=== PATIENT | female | born 1950 | race Caucasian/White ===

== ENCOUNTER 2022-07-26 13:57 | Emergency (ER) | payer MEDICARE, SELFPAY ==
[2022-07-26 14:23] VITALS: BP 80/46; PULSE 90; RESP 16; TEMP 36.5; O2SAT 99; BMI 23.7
--- NOTE | 2022-07-26 14:24 | EXP.UTC ---
Discharge Plan Disposition Patient Disposition: Home, Self-Care Condition: Good Prescriptions Prescriptions: New benzonatate [benzonatate] 100 mg capsule 100 mg PO TIDP PRN (Reason: Cough) Qty: 30 0RF oseltamivir [Tamiflu] 75 mg capsule 75 mg PO BID Qty: 10 0RF ondansetron 4 mg Tablet,Disintegrating 4 mg PO Q8H PRN (Reason: Nausea) Qty: 20 0RF Referrals Follow up/Referrals: Dmitri Mckinney [Primary Care Provider] - See instructions Activity Restrictions/Add. Instructions Additional Instructions/Restrictions: Drink plenty of fluids. Take tylenol or ibuprofen for pain or fever. Take the medications as directed. Follow up with your regular doctor. GO TO THE ER FOR ANY WORSENING SYMPTOMS Clinical Impressions Clinical Impression: Acute viral syndrome Instructions Patient Instructions: DI for Influenza -- Adult Discharge ED Provider: Aric Ibanez [facility] HPI General Stated complaint: body aches Time Seen by Provider: 07/26/22 14:24 History of Present Illness Provider Complaint: She states that for the past 1 day she has had body aches, chills, fever, dry cough, and malaise. She denies any known sick contacts. Related Data Previous Rx's Medication Instructions Recorded benzonatate 100 mg capsule 100 mg PO TIDP PRN Cough #30 caps 07/26/22 ondansetron 4 mg disintegrating 4 mg PO Q8H PRN Nausea #20 tabs 07/26/22 tablet oseltamivir 75 mg capsule (Tamiflu) 75 mg PO BID #10 caps 07/26/22 Allergies Allergy/AdvReac Type Severity Reaction Status Date / Time Sulfa (Sulfonamide Allergy Verified 07/26/22 14:26 Antibiotics) [facility] Disclaimer: The information contained in this section may have been updated after the patient was seen, as this information can be updated by other users. Social History Smoking Status: Former smoker alcohol intake: never current occupational status: employed Travel in the last 8 weeks: None ROS Obtained: Yes All systems reviewed & no additional complaints except as documented Constitutional Constitutional: Reports chills and Reports fever(s) Eyes Eyes: Denies eye discharge ENT Ears, Nose, Mouth, and Throat: Reports as per HPI Cardiovascular Cardiovascular: Denies chest pain Respiratory Respiratory: Denies chest congestion and Reports cough Gastrointestinal Gastrointestingal: Reports nausea; Denies abdominal pain, constipation, cramping, diarrhea or vomiting Musculoskeletal Musculoskeletal: Denies arthralgias Integumentary/Breasts Skin/Breast: Denies rash Neurologic Neurologic: Denies paresthesias Physical Exam General General appearance: alert and in no apparent distress Head Head exam: atraumatic, normocephalic and normal inspection Eye Eye exam: Present normal appearance, PERRL and EOMI ENT ENT exam: Present normal exam, normal oropharynx, mucous membranes moist, TM's normal bilaterally and normal external ear exam Neck Neck exam: Present normal inspection, full ROM and trachea midline; Absent meningismus or lymphadenopathy Chest Chest inspection: Present normal inspection and symmetric chest wall rise; Absent tenderness Respiratory Respiratory exam: Present normal lung sounds bilaterally; Absent respiratory distress Cardiovascular Cardiovascular exam: Present regular rate and normal rhythm; Absent JVD Abdominal Exam Abdominal exam: Present soft and normal bowel sounds; Absent distention, tenderness or guarding Extremities Exam Extremities exam: Present normal inspection, full ROM and normal capillary refill; Absent calf tenderness Back Exam Back exam: Present normal inspection; Absent tenderness Neurological Exam Neurological exam: Present alert and oriented X3 Psychiatric Psychiatric exam: Present normal affect and normal mood Skin Skin exam: Present warm, dry, intact and normal color Lymphatic Lymphatic Findings: no adenopathy Medical Decision Making Med
[2022-07-26 14:32] LABS: UTC Influenza A Antigen Negative (Negative); UTC Influenza B Antigen Negative (Negative)
[2022-07-26 15:33] VITALS: BP 100/62
[2022-07-26 15:41] VITALS: BP 100/62; PULSE 90; RESP 16; TEMP 36.5
[2022-07-26 15:42] LABS: Adenovirus,PCR Not Detected (NotDetected); Bordetella Pertussis Not Detected (NotDetected); Chlamydophila Pneumoniae, PCR Not Detected (NotDetected); Coronavirus 19, PCR Not Detected (NotDetected); Coronavirus 229E Not Detected (NotDetected); Coronavirus NL63 Not Detected (NotDetected); Coronavirus OC43 Not Detected (NotDetected); Coronovirus HKU1,PCR Not Detected (NotDetected); Human Metapneumovirus Not Detected (NotDetected); Influenza A, PCR Not Detected (NotDetected); Influenza AH1, 2009 Not Detected (NotDetected); Influenza AH1, PCR Not Detected (NotDetected); Influenza AH3,PCR Not Detected (NotDetected); Influenza B, PCR Not Detected (NotDetected); Mycoplasma Pneumoniae, PCR Not Detected (NotDetected); Parainfluenza 1, PCR Not Detected (NotDetected); Parainfluenza 2, PCR Not Detected (NotDetected); Parainfluenza 3, PCR Not Detected (NotDetected); Parainfluenza 4, PCR Not Detected (NotDetected); Respiratory Syncytial Virus Not Detected (NotDetected); Rhinovirus/Enterovirus Not Detected (NotDetected)
== END 2022-07-26 15:42 | disposition home or self-care (01) ==
PROVIDERS: Emergency Provider Nurse Practitioner Family; PCP Internal Medicine
DX: B34.9 Viral infection, unspecified (principal)
CPT/HCPCS: 87581; 87632; 87798; 87804; C9803; U0003; U0005

== ENCOUNTER 2022-07-27 22:05 | Inpatient (IN) | payer MEDICARE, SELFPAY ==
--- NOTE | 2022-07-27 22:02 | ECG_ITS ---
APPROVED REPORT Exam: Resting ECG HR:135 bpm ECG Measurements Heart Rate 135 AXES LA 151 P 72 QRSd 81 QRS 49 QT 283 T 49 QTc 362 Conclusion SINUS TACHYCARDIA MINIMAL ST DEPRESSION [0.025+ mV ST DEPRESSION] ABNORMAL RHYTHM ECG UNCONFIRMED REPORT Electronically signed by : Osbaldo Mccormick MD 07/28/2022 12:10:52
[2022-07-27 22:05] VITALS: BP 135/59; PULSE 136; RESP 26; TEMP 38.3; O2SAT 95; BMI 23.7
[2022-07-27 22:10] VITALS: BMI 23.7
--- NOTE | 2022-07-27 22:11 | XR_ITS ---
PROCEDURE INFORMATION: Exam: XR Chest Exam date and time: 07/27/2022 10:13 PM Age: 72 years old Clinical indication: Fever TECHNIQUE: Imaging protocol: Radiologic exam of the chest. Views: 2 views. COMPARISON: No relevant prior studies available. FINDINGS: Lungs: Irregular perihilar airspace opacity within the mid left lung. Pleural spaces: No pneumothorax. Heart/Mediastinum: No cardiomegaly. Bones/joints: No acute fracture. IMPRESSION: Irregular perihilar airspace opacity within the mid left lung which is nonspecific but potentially secondary to pneumonia. Follow-up to radiographic clearance is recommended to rule out underlying mass.
[2022-07-27 22:23] LABS: Coronavirus 19, PCR Not Detected (NotDetected); Influenza A, PCR Not Detected (NotDetected); Influenza B, PCR Not Detected (NotDetected)
[2022-07-27 22:27] LABS: Microscopic, Urine URINE MICROSCOPIC (MICROSCOPIC)
[2022-07-27 22:28] LABS: Basophils # 0.1 K/mm3 (0-0.2); Basophils % 0.4 % (0.1-2.0); Eosinophils % 0.2 % (0.1-12.0); Hematocrit 39.5 % (37.0-47.0); Hemoglobin 12.8 g/dL (12.2-16.2); Lymphocytes # 0.7 K/mm3 (0.7-4.5); Lymphocytes % 5.4 % (10-50); Mean Corpuscular HGB Conc 32.4 g/dL (31.8-35.4); Mean Corpuscular Hemoglobin 30.9 pg (27.0-31.2); Mean Corpuscular Volume 95.2 fl (81-99); Mean Platelet Volume 10.7 fl (7.4-10.4); Monocytes # 0.3 K/mm3 (0.1-1.0); Monocytes % 2.3 % (1.7-9.3); Neutrophils # 12.2 K/mm3 (1.8-7.8); Neutrophils % 91.7 % (37.0-80.0); Platelet Count 219 K/mm3 (142-424); Red Blood Count 4.15 M/mm3 (4.20-5.40); Red Cell Distribution Width 13.1 % (11.5-17.5); White Blood Count 13.3 K/mm3 (4.8-10.8)
[2022-07-27 22:30] VITALS: BP 109/49; PULSE 131; RESP 21; O2SAT 95
[2022-07-27 22:32] LABS: Alanine Aminotransferase 24 U/L (12-78); Albumin Level 4.2 g/dl (3.5-5.0); Albumin/Globulin Ratio 1.2 (1.1-1.8); Alkaline Phosphatase 164 U/L (38-126); Anion Gap 16.9 mEq/L (5-15); Aspartate Amino Transferase 29 U/L (14-36); Bilirubin,Total 0.6 mg/dl (0.2-1.3); Blood Urea Nitrogen 71 mg/dl (7-17); Calcium 9.3 mg/dl (8.4-10.2); Carbon Dioxide 23 mmol/L (22.0-30.0); Chloride 100 mmol/L (98-107); Creatinine Clearance Estimated 15 mL/min (50-200); Estimated Glomerular Filt Rate 13 ml/min (>60); GFR (African American) 16 ML/MIN (>60); Globulin 3.4 g/dL (1.3-3.2); Glucose 121 mg/dl (74-100); Potassium 3.9 mmoL/L (3.5-5.1); Sodium 136 mmol/L (136-145); Total Protein,Serum 7.6 g/dl (6.3-8.2)
[2022-07-27 22:35] LABS: MANUAL DIFFERENTIAL MANUAL DIFFERENTIAL (MANUAL DIFF)
[2022-07-27 22:36] VITALS: PULSE 35
--- NOTE | 2022-07-27 22:39 | HMH.EDCP ---
Discharge Plan Disposition Patient Disposition: Admitted As Inpatient Chief Complaint: Chest Pain Clinical Impressions Clinical Impression: CAP (community acquired pneumonia), Severe sepsis with acute organ dysfunction, Elevated troponin Discharge ED Provider: Nathan Craig Chest Pain HPI General Chief Complaint: Chest Pain Stated Complaint: chest pain Time Seen by Provider: 07/27/22 22:39 Mode of Arrival: Family Vehicle Source of Information: Patient, Relative and Medical Record Limitations: No Limitations Description of Symptoms (Recalled from ER Triage Doc. by RN): Pt c/o posterior neck pain tht radiates to L shoulder and down left chest. Her family is also c/o pt has acted dizzy and confused at times . Pt has had fever and chills, currently 101. She has not had a ny tylenol since 10am, denies any motrin use. Pt states the pain worsens when she lays on her side. Family also state pt is on a new muscle relaxer and caused her BP to drop to 80's/40's. History of Present Illness HPI narrative: lt sided chest pain witrh dizzyness and fever /chills over the last few days MD complaint: chest pain Onset (ago): day(s) Duration: intermittent Pain location: left chest Severity: moderate Risk Factors for CAD: Hypertension and Family Hx of CAD Treatments prior to or on arrival for Cardiac Chest Pain: none CECY Score for Non-Stemi Age of Patient: 70-79 years old Heart Rate: 110-149 bpm Systolic Blood Pressure: 80-99 mmHg Serum Creatinine: 2.00-3.99 mg/dl CHF [place] Class: I-No CHF Other Risk Factors: Elevated Cardiac Enzymes or Biomarkers Non-Stemi Risk Score: 187 Related Data On Oral Contraceptives: No Home Medications Medication Instructions Recorded Confirmed albuterol sulfate 90 mcg/actuation 2 inh inhalation Q4-6H PRN 07/27/22 07/27/22 aerosol inhaler shortness of air budesonide-formoterol HFA 80 2 inh inhalation BID COPD 07/27/22 07/27/22 mcg-4.5 mcg/actuation aerosol inhaler (Symbicort) cyclobenzaprine 5 mg tablet 5 mg PO DAILY muscle relaxer 07/27/22 07/27/22 estradiol 0.5 mg tablet 1 mg PO DAILY hormone 07/27/22 07/27/22 fluticasone fur. 100 mcg-umeclid 1 inh inhalation DAILY COPD 07/27/22 07/27/22 62.5 mcg-vilant 25 mcg inhalat.powder (Trelegy Ellipta) levocetirizine 5 mg tablet 5 mg PO DAILY Allergy symptoms 07/27/22 07/27/22 lisinopril 10 mg tablet 10 mg PO DAILY High blood pressure 07/27/22 07/27/22 meloxicam 15 mg tablet 15 mg PO DAILY Arthritis 07/27/22 07/27/22 montelukast 10 mg tablet 10 mg PO DAILY Allergy symptoms 07/27/22 07/27/22 oseltamivir 75 mg capsule (Tamiflu) 75 mg PO BID suspected flu 07/27/22 07/27/22 oxybutynin chloride 10 mg 10 mg PO DAILY bladder 07/27/22 07/27/22 tablet,extended release 24 hr pravastatin 40 mg tablet 40 mg PO DAILY High cholesterol 07/27/22 07/27/22 triamterene 75 0.5 tab PO DAILY High blood 07/27/22 07/27/22 mg-hydrochlorothiazide 50 mg tablet pressure Allergies Allergy/AdvReac Type Severity Reaction Status Date / Time Sulfa (Sulfonamide Allergy Verified 07/26/22 14:26 Antibiotics) [facility] Disclaimer: The information contained in this section may have been updated after the patient was seen, as this information can be updated by other users. Social History (Updated 07/26/22 @ 21:20 by Aric Ibanez APRN) Smoking Status: Former smoker alcohol intake: never current occupational status: employed Travel in the last 8 weeks: None ROS Obtained: Yes All systems reviewed & no additional complaints except as documented Physical Exam General General appearance: alert Head Head exam: normocephalic Eye Eye exam: Present PERRL and EOMI ENT ENT exam: Present mucous membranes moist Neck Neck exam: Present trachea midline Respiratory Respiratory exam: Present other (lt sided rhonchi ); Absent respiratory distress Cardiovascular Cardiovascular exam: Present regular rate, systolic murmur and +S4 Abdominal Exam Abdominal exam: Presen
[2022-07-27 22:47] LABS: Troponin I 0.11 ng/ml (0.00-0.034)
[2022-07-27 22:47] LABS: Appearance,Urine CLEAR (Clear); Blood, Urine TRACE-I (Negative); Color,Urine YELLOW (Yellow); Glucose,Urine (UA) Negative (Negative); Ketones,Urine Negative (Negative); Leukocyte Esterase,Urine 1+ (Negative); Nitrate,Urine Negative (Negative); PH,Urine 5.5 (5.0-8.5); Protein,Urine 2+ (Negative); Urobilinogen,Urine 0.2 EU/dl (0.2)
[2022-07-27 22:51] LABS: Procalcitonin 13.6 ng/mL (0.0-2.0)
[2022-07-27 22:52] LABS: C-Reactive Protein 631.1 mg/L (0-4)
[2022-07-27 22:52] LABS: Bilirubin,Urine 1+ (Negative)
[2022-07-27 22:57] LABS: Bacteria,Urine 1+ /lpf
--- NOTE | 2022-07-27 22:57 | CT_ITS ---
PROCEDURE INFORMATION: Exam: CT Thoracic Spine Without Contrast Exam date and time: 07/27/2022 11:11 PM Age: 72 years old Clinical indication: Pain in thoracic spine; With radiculopathy; Bilateral TECHNIQUE: Imaging protocol: Computed tomography of the thoracic spine without contrast. Radiation optimization: All CT scans at this facility use at least one of these dose optimization techniques: automated exposure control; mA and/or kV adjustment per patient size (includes targeted exams where dose is matched to clinical indication); or iterative reconstruction. COMPARISON: CT CERVICAL SPINE WO CON 07/27/2022 11:09 PM FINDINGS: Bones/joints: No acute fracture. Normal alignment. No significant disc protrusion. No severe spinal canal stenosis. Soft tissues: Unremarkable. Other findings: Please see separate report for CT chest. IMPRESSION: No acute fracture or malalignment of the thoracic spine.
--- NOTE | 2022-07-27 22:57 | CT_ITS ---
PROCEDURE INFORMATION: Exam: CT Cervical Spine Without Contrast Exam date and time: 07/27/2022 11:09 PM Age: 72 years old Clinical indication: Neck pain TECHNIQUE: Imaging protocol: Computed tomography of the cervical spine without contrast. Radiation optimization: All CT scans at this facility use at least one of these dose optimization techniques: automated exposure control; mA and/or kV adjustment per patient size (includes targeted exams where dose is matched to clinical indication); or iterative reconstruction. COMPARISON: CR XR CHEST 2V 07/27/2022 10:13 PM FINDINGS: Bones/joints: No acute fracture. Normal alignment. No significant disc protrusion. No severe spinal canal stenosis. Lungs: Bilateral apical scarring. Soft tissues: Unremarkable. IMPRESSION: No acute fracture or malalignment of the cervical spine.
--- NOTE | 2022-07-27 22:57 | CT_ITS ---
PROCEDURE INFORMATION: Exam: CT Chest Without Contrast; Diagnostic Exam date and time: 07/27/2022 11:13 PM Age: 72 years old Clinical indication: Pain; Chest pressure TECHNIQUE: Imaging protocol: Diagnostic computed tomography of the chest without contrast. Radiation optimization: All CT scans at this facility use at least one of these dose optimization techniques: automated exposure control; mA and/or kV adjustment per patient size (includes targeted exams where dose is matched to clinical indication); or iterative reconstruction. COMPARISON: CR XR CHEST 2V 07/27/2022 10:13 PM FINDINGS: Lungs: Scattered left lung consolidations most likely represent pneumonia. [id number] centrilobular and paraseptal emphysema. Bilateral apical scarring. Pleural spaces: Unremarkable. No pneumothorax. No pleural effusion. Heart: Unremarkable. No cardiomegaly. No pericardial effusion. Coronary arteries: Severe coronary arterial calcification, indicating the presence of coronary artery disease. Lymph nodes: Unremarkable. No enlarged lymph nodes. Vasculature: The aorta demonstrates moderate atherosclerotic disease. Liver: Hepatic steatosis. Bones/joints: Unremarkable. No acute fracture. Soft tissues: Unremarkable. Other findings: Stigmata of old granulomatous disease. IMPRESSION: 1. Scattered left lung consolidations most likely represent pneumonia. The bacterial pneumonia is favored. 2. Hepatic steatosis. 3. Severe coronary arterial calcification, indicating the presence of coronary artery disease. If the patient has associated symptoms, recommend management as per chest pain guidelines. If the patient is asymptomatic, consider reviewing modifiable cardiovascular risk factors and managing as per guidelines for primary prevention.
[2022-07-27 23:00] VITALS: BP 98/42; PULSE 125; RESP 23; O2SAT 94
[2022-07-27 23:12] LABS: Erythrocyte Sedimentation Rate 95 mm/hr (0-30)
--- NOTE | 2022-07-27 23:16 | PC.NURSE ---
Pt gone to RAD for CT
--- NOTE | 2022-07-27 23:18 | PC.NURSE ---
Pt back from RAD
[2022-07-27 23:23] LABS: Lymphocytes % 7 % (10-50); Monocytes % 3 % (2-9); Neutrophils % 90 % (42-76); Total Cells Counted 100
[2022-07-27 23:24] LABS: Platelet Estimate Normal; RBC Morphology Normal
[2022-07-28] VITALS (16 sets, daily range): BP systolic 77–126; BP diastolic 40–66; PULSE 72–123; RESP 16–22; TEMP 36.4–37.3; O2SAT 91–99; BMI 24.3
--- NOTE | 2022-07-28 00:54 | EXP.HP ---
History of Present Illness *Admission Date: 07/28/22 *Reason for visit:: pneumonia, , cough, high heart rate. *History of present illness: was seen a few days ago, started on Tamiflu from urgent care. became worse and came to ER. [facility] Disclaimer: The information contained in this section may have been updated after the patient was seen, as this information can be updated by other users. Medical History (Updated 07/28/22 @ 13:05 by Eliel Elizondo MD) Allergies Asthma History of thyroid nodule Hyperlipidemia Hypertension Overactive bladder Pneumonia Surgical History (Updated 07/28/22 @ 02:38 by Katie Arreaga RN) History of cardiac cath History of colonoscopy History of knee replacement History of total abdominal hysterectomy Family History (Updated 07/28/22 @ 02:40 by Katie Arreaga RN) Brother History of bone cancer Family history of asthma Sister History of colon cancer Family history of asthma Social History (Updated 07/28/22 @ 02:43 by Katie Arreaga RN) Smoking Status: Former smoker years smoked: 30 smoking status stop date: 2007 alcohol intake: never current occupational status: retired Travel in the last 8 weeks: None household members: spouse housing: apartment lives independently: Yes marital status: do you feel safe at home: Yes Review of Systems Review of Systems Review of systems (narrative): when seen in Er feeling much better. after IV fluids. stated saw PCP in [place] last week before ILL and had blood work done , at that time having no issues . has had covid vaccine, has been out shopping, does not know of any one that has been ill close to her in last week Constitutional Constitutional: Reports as per HPI, Reports body ache(s) (neck pain left into shoulder ), Reports chills, Reports difficulty sleeping, Reports fatigue, Reports fever(s), Reports headache(s) and Reports lethargy Eyes Eyes: Reports system reviewed and no additional complaints, except as documented ENT Ears, Nose, Mouth, and Throat: Reports system reviewed and no additional complaints, except as documented, Reports headache(s) and Reports neck pain *Cardiovascular Cardiovascular: Reports dyspnea, Reports dyspnea on exertion, Reports lightheadedness and Reports palpitations *Respiratory Respiratory: Reports change in phlegm color, Reports chest congestion, Reports cough, Reports dyspnea and Reports dyspnea on exertion *Gastrointestinal Gastrointestinal: Reports system reviewed and no additional complaints, except as documented *Genitourinary Genitourinary: Reports system reviewed and no additional complaints, except as documented *Musculoskeletal Musculoskeletal: Reports arthralgias, Reports back pain, Reports myalgias, Reports neck pain and Reports tingling Integumentary/Breasts Skin/Breast: Reports system reviewed and no additional complaints, except as documented *Neurologic Neurologic: Reports headache(s) and Reports tingling Psychiatric Psychiatric: Reports system reviewed and no additional complaints, except as documented Endocrine Endocrine: Reports fatigue and Reports palpitations Hematologic/Lymphatic Hematologic/Lymphatic: Reports system reviewed and no additional complaints, except as documented Allergic/Immunologic Comments: saw hearing aid mechanic , this week before ill. Meds Home Medications and Allergies Home Medications Medication Instructions Recorded Confirmed Type albuterol sulfate 90 mcg/actuation 2 inh inhalation Q4-6H PRN 07/27/22 07/28/22 History aerosol inhaler shortness of air cyclobenzaprine 5 mg tablet 5 mg PO BIDP PRN Muscle spasms 07/27/22 07/28/22 History estradiol 0.5 mg tablet 0.5 mg PO DAILY hormone replacement 07/27/22 07/28/22 History fluticasone fur. 100 mcg-umeclid 1 inh inhalation DAILY COPD 07/27/22 07/28/22 History 62.5 mcg-vilant 25 mcg inhalat.powder (Trelegy Ellipta) levocetirizine 5 mg tablet 5 m
--- NOTE | 2022-07-28 01:15 | PC.NURSE ---
Received report from Ascencion Dunn RN at this time.
--- NOTE | 2022-07-28 01:26 | PC.NURSE ---
Notified ED of issues with the bed in the room and the need to obtain a new bed from ICU. Would be down shortly to obtain patient for transfer to the floor.
[2022-07-28 01:33] LABS: Troponin I 0.08 ng/ml (0.00-0.034)
--- NOTE | 2022-07-28 04:23 | EXP.PN ---
Subjective *Date: 07/28/22 *Time: 07:30 Interval history: bp sys less than 90 , patient is stable no distress Exam Data for Last 24 hours Vital signs and Labs for Last 24 Hours: Temp Pulse Resp BP Pulse Ox 97.9 F 84 21 90/52 L 98 07/28/22 02:00 07/28/22 02:00 07/28/22 02:20 07/28/22 02:00 07/28/22 03:00 Laboratory Results - last 24 hr 07/27/22 22:08: WBC 13.3 H, RBC 4.15 L, Hgb 12.8, Hct 39.5, MCV 95.2, MCH 30.9, MCHC 32.4, RDW 13.1, Plt Count 219, MPV 10.7 H, Neut % (Auto) 91.7 H, Lymph % (Auto) 5.4 L, [place] % (Auto) 2.3, Eos % (Auto) 0.2, Baso % (Auto) 0.4, Neut # (Auto) 12.2 H, Lymph # (Auto) 0.7, [place] # (Auto) 0.3, Eos # (Auto) 0.0, Baso # (Auto) 0.1, Total Counted 100, Neutrophils % (Manual) 90 H, Lymphocytes % (Manual) 7 L, Monocytes % (Manual) 3, Platelet Estimate Normal, RBC Morphology Normal, ESR 95 H 07/27/22 22:08: Troponin I 0.11 H, C-Reactive Protein 631.1 H, Procalcitonin 13.6 H 07/27/22 22:08: SARS-CoV-2 (PCR) Not detected, Influenza A Untype (PCR) Not detected, Influenza Type B (PCR) Not detected 07/27/22 22:08: Sodium 136, Potassium 3.9, Chloride 100, Carbon Dioxide 23, Anion Gap 16.9 H, BUN 71 H, Creatinine 3.40 H, Estimated Creat Clear 15, Estimated GFR 13 L*, Est GFR ( Amer) 16 L*, Glucose 121 H, Calcium 9.3, Total Bilirubin 0.6, AST 29, ALT 24, Alkaline Phosphatase 164 H, Total Protein 7.6, Albumin 4.2, Globulin 3.4 H, Albumin/Globulin Ratio 1.2 07/27/22 22:21: Urine Color Yellow, Urine Appearance Clear, Urine pH 5.5, Ur Specific [place] 1.020, Urine Protein 2+, Urine Glucose (UA) Negative, Urine Ketones Negative, Urine Blood Trace-i, Urine Nitrate Negative, Urine Bilirubin 1+ A, Urine Urobilinogen 0.2, Ur Leukocyte Esterase 1+ A, Urine RBC 3-5, Urine WBC 5-10, Ur Squamous Epith Cells 5-10, Urine Bacteria 1+ 07/27/22 22:45: Lactate 1.0 07/28/22 01:04: Troponin I 0.08 H I & O for Last 24 hours: Intake & Output 07/25/22 07/26/22 07/27/22 07/28/22 23:59 23:59 23:59 23:59 Intake Total 2049 Output Total 0 / 0 Balance 2049 Weight 60.781 kg 63.14 kg Constitutional Constitutional: no acute distress Comments: awake alert denies pain or difficulty breathing *Routine Respiratory Exam Comments: no signs od resp distress, , Assessment and Plan *Assessment and plan (1) Severe sepsis with acute organ dysfunction: Status: Acute Category: Medical Code(s): A41.9 - Sepsis, unspecified organism; R65.20 - Severe sepsis without septic shock (2) Elevated troponin: Status: Acute Category: Medical Code(s): R77.8 - Other specified abnormalities of plasma proteins Plan will give extra 500 cc bolus, tropin trending down, patient is stable do not want to start pressures at this time .
--- NOTE | 2022-07-28 04:49 | PC.NURSE ---
Hospitalist Kaleb Henao APRN notified at this time of completion of 500 ml bolus. Patient's BP remains 80/50. Patient remains asymptomatic from hypotension. Patient is alert and oriented x4. All other vital signs are WNL. Patient remains afebrile, heart rate 80-100, respirations 17-19. Patient has no complaints voiced to this RN.
[2022-07-28 07:17] LABS: Chloride 111 mmol/L (98-107); Sodium 139 mmol/L (136-145)
[2022-07-28 07:18] LABS: Potassium 3.5 mmoL/L (3.5-5.1)
[2022-07-28 07:20] LABS: Alanine Aminotransferase 16 U/L (12-78); Albumin Level 2.7 g/dl (3.5-5.0); Alkaline Phosphatase 119 U/L (38-126); Anion Gap 9.5 mEq/L (5-15); Aspartate Amino Transferase 21 U/L (14-36); Bilirubin,Total 0.3 mg/dl (0.2-1.3); Blood Urea Nitrogen 54 mg/dl (7-17); Carbon Dioxide 22 mmol/L (22.0-30.0); Creatinine Clearance Estimated 21 mL/min (50-200); Estimated Glomerular Filt Rate 19 ml/min (>60); GFR (African American) 23 ML/MIN (>60); Globulin 2.6 g/dL (1.3-3.2); Total Protein,Serum 5.3 g/dl (6.3-8.2)
[2022-07-28 07:21] LABS: Calcium 7.4 mg/dl (8.4-10.2); Glucose 91 mg/dl (74-100)
[2022-07-28 07:32] LABS: Troponin I 0.06 ng/ml (0.00-0.034)
[2022-07-28 08:02] LABS: Basophils % 0.2 % (0.1-2.0); Eosinophils % 0.5 % (0.1-12.0); Lymphocytes # 0.7 K/mm3 (0.7-4.5); Monocytes # 0.3 K/mm3 (0.1-1.0); Monocytes % 3.5 % (1.7-9.3); Neutrophils % 87.7 % (37.0-80.0)
[2022-07-28 08:24] LABS: Hematocrit 28.7 % (37.0-47.0); Mean Corpuscular HGB Conc 33.1 g/dL (31.8-35.4); Mean Corpuscular Hemoglobin 31.1 pg (27.0-31.2); Mean Corpuscular Volume 93.9 fl (81-99); Mean Platelet Volume 10.4 fl (7.4-10.4); Neutrophils # 7.4 K/mm3 (1.8-7.8); Platelet Count 132 K/mm3 (142-424); Red Blood Count 3.05 M/mm3 (4.20-5.40); Red Cell Distribution Width 13.1 % (11.5-17.5); White Blood Count 8.5 K/mm3 (4.8-10.8)
[2022-07-28 08:29] LABS: Hemoglobin 9.5 g/dL (12.2-16.2)
[2022-07-28 08:30] LABS: MANUAL DIFFERENTIAL MANUAL DIFFERENTIAL (MANUAL DIFF)
[2022-07-28 09:04] LABS: Troponin I 0.06 ng/ml (0.00-0.034)
[2022-07-28 10:45] LABS: Lymphocytes % 7 % (10-50); Monocytes % 2 % (2-9); Neutrophils % 90 % (42-76); Platelet Estimate Slight Decrease; RBC Morphology Normal; Total Cells Counted 100
[2022-07-28 12:53] LABS: Troponin I 0.05 ng/ml (0.00-0.034)
--- NOTE | 2022-07-28 18:09 | PC.NURSE ---
pt has has 5 unmeasured voids this shift
[2022-07-29] VITALS (11 sets, daily range): BP systolic 107–146; BP diastolic 55–75; PULSE 90–111; RESP 16–18; TEMP 36.7–37.9; O2SAT 93–98; BMI 24.3
--- NOTE | 2022-07-29 05:44 | PC.NURSE ---
pt is A&OX4. no c/o pain this shift. pt stated that she had been coughing up some blood on the previous shift. pt was given a specimen cup for a sputum, pt has been unable to cough anything up this shift. call light is in reach.
[2022-07-29 08:09] LABS: Basophils % 0.4 % (0.1-2.0); Eosinophils # 0.2 K/mm3 (0.0-0.4); Eosinophils % 1.9 % (0.1-12.0); Hematocrit 32.5 % (37.0-47.0); Hemoglobin 10.4 g/dL (12.2-16.2); Lymphocytes # 0.8 K/mm3 (0.7-4.5); Lymphocytes % 10.8 % (10-50); Mean Corpuscular HGB Conc 32.1 g/dL (31.8-35.4); Mean Corpuscular Hemoglobin 29.6 pg (27.0-31.2); Mean Corpuscular Volume 92.5 fl (81-99); Mean Platelet Volume 9.7 fl (7.4-10.4); Monocytes # 0.3 K/mm3 (0.1-1.0); Monocytes % 4.3 % (1.7-9.3); Neutrophils # 6.3 K/mm3 (1.8-7.8); Neutrophils % 82.6 % (37.0-80.0); Platelet Count 217 K/mm3 (142-424); Red Blood Count 3.52 M/mm3 (4.20-5.40); Red Cell Distribution Width 13.3 % (11.5-17.5); White Blood Count 7.7 K/mm3 (4.8-10.8)
[2022-07-29 08:15] LABS: Chloride 112 mmol/L (98-107); Potassium 3.5 mmoL/L (3.5-5.1); Sodium 143 mmol/L (136-145)
[2022-07-29 08:18] LABS: Alanine Aminotransferase 17 U/L (12-78); Albumin Level 3.2 g/dl (3.5-5.0); Albumin/Globulin Ratio 1.1 (1.1-1.8); Alkaline Phosphatase 199 U/L (38-126); Anion Gap 10.5 mEq/L (5-15); Aspartate Amino Transferase 25 U/L (14-36); Bilirubin,Total 0.3 mg/dl (0.2-1.3); Blood Urea Nitrogen 33 mg/dl (7-17); Carbon Dioxide 24 mmol/L (22.0-30.0); Creatinine Clearance Estimated 33 mL/min (50-200); Estimated Glomerular Filt Rate 32 ml/min (>60); GFR (African American) 39 ML/MIN (>60); Total Protein,Serum 6.2 g/dl (6.3-8.2)
[2022-07-29 08:19] LABS: Calcium 8.6 mg/dl (8.4-10.2); Glucose 81 mg/dl (74-100)
--- NOTE | 2022-07-29 09:28 | XR_ITS ---
PROCEDURE INFORMATION: Exam: XR Chest Exam date and time: 07/29/2022 9:36 AM Age: 72 years old Clinical indication: Dyspnea TECHNIQUE: Imaging protocol: Radiologic exam of the chest. Views: 2 views. COMPARISON: CT CHEST WO CON 07/27/2022 11:13 PM and x-ray 07/27/2022. FINDINGS: Lungs: There has been interval increase in left lung consolidation since the prior x-ray. Pleural spaces: There may be a trace left pleural effusion. Heart/Mediastinum: No cardiomegaly. Bones/joints: Unchanged. IMPRESSION: Interval progression of left pneumonia.
[2022-07-29 09:51] LABS: NT Pro Brain Natriuretic Pep. 5290 pg/mL (0-125)
[2022-07-29 09:54] LABS: Troponin I 0.06 ng/ml (0.00-0.034)
--- NOTE | 2022-07-29 11:20 | ECG_ITS ---
APPROVED REPORT Exam: Resting ECG HR:112 bpm ECG Measurements Heart Rate 112 AXES NV 144 P 60 QRSd 81 QRS 19 QT 323 T 34 QTc 389 Conclusion SINUS TACHYCARDIA ABNORMAL RHYTHM ECG UNCONFIRMED REPORT Electronically signed by : Osbaldo Mccormick MD 07/30/2022 11:12:43
--- NOTE | 2022-07-29 12:13 | EXP.PN ---
Subjective *Date: 07/29/22 *Time: 12:13 Interval history: No acute events overnight. Patient reports productive cough with some blood tinges overnight. She feels like she is smothering and is short of breath. She also has burning in her mouth that is somewhat alleviated by eating ice chips. Exam Data for Last 24 hours Vital signs and Labs for Last 24 Hours: Temp Pulse Resp BP Pulse Ox 98.0 F 102 H 16 146/75 H 97 07/29/22 11:26 07/29/22 11:26 07/29/22 11:07/29/22 11:07/29/22 11:26 Laboratory Results - last 24 hr 07/28/22 12:23: Troponin I 0.05 H 07/29/22 06:44: Sodium 143, Potassium 3.5, Chloride 112 H, Carbon Dioxide 24, Anion Gap 10.5, BUN 33 H D, Creatinine 1.60 H D, Estimated Creat Clear 33, Estimated GFR 32 L, Est GFR ( Amer) 39 L D, Glucose 81, Calcium 8.6, Total Bilirubin 0.3, AST 25, ALT 17, Alkaline Phosphatase 199 H, Total Protein 6.2 L, Albumin 3.2 L D, Globulin 3.0, Albumin/Globulin Ratio 1.1 07/29/22 06:44: WBC 7.7, RBC 3.52 L, Hgb 10.4 L, Hct 32.5 L, MCV 92.5, MCH 29.6, MCHC 32.1, RDW 13.3, Plt Count 217 D, MPV 9.7, Neut % (Auto) 82.6 H, Lymph % (Auto) 10.8, [place] % (Auto) 4.3, Eos % (Auto) 1.9, Baso % (Auto) 0.4, Neut # (Auto) 6.3, Lymph # (Auto) 0.8, [place] # (Auto) 0.3, Eos # (Auto) 0.2, Baso # (Auto) 0.0 07/29/22 06:44: Troponin I 0.06 H, NT-Pro-B Natriuret Pep 5290 H I & O for Last 24 hours: Intake & Output 07/26/22 07/27/22 07/28/22 07/29/22 23:59 23:59 23:59 23:59 Intake Total 2410 / 2410 240 / 240 Output Total 300 / 300 0 / 0 Balance 2110 / 2110 240 / 240 Weight 60.781 kg 63.14 kg 63.163 kg Microbiology Reports for the Last 24 Hours: Microbiology 07/27/22 22:21 Urine,Clean Catch Urine Culture - Preliminary Constitutional Constitutional: mild distress (Shortness of breath), chronically ill appearing and cooperative *Routine HEENT Exam Head: Present normocephalic and atraumatic Eye: Present EOMI and PERRL ENT: Present mucous membranes dry, oropharynx clear and other (Erythema down the middle of the tongue, irritated feeling per patient) *Routine Neck Exam Neck: Present supple and full ROM *Routine Respiratory Exam Respiratory: Present accessory muscle use, rhonchi (Diffusely) and normal respiratory effort (Slight tachypnea and increased work of breathing); Absent CTA bilaterally or respiratory distress *Routine Cardiovascular Exam Cardiovascular: Present RRR, Normal S1, Normal S2 and tachycardia; Absent murmur *Routine Abdominal Exam Abdominal: Present soft and normoactive bowel sounds; Absent tenderness, distended, rebound or guarding *Routine Extremities Exam Extremities: Present full ROM, pulses intact and normal capillary refill; Absent edema or tenderness *Routine Neurological Exam Neurological: Present alert, oriented X3, CN II-XII intact, moving all extremities, normal tone and normal speech; Absent sensory deficit or motor deficit Routine Psychiatric Exam Psychiatric: Present normal affect, normal thought process, cooperative, good insight and good judgment Assessment and Plan *Assessment and plan (1) Acute viral syndrome: Status: Acute Category: Medical Code(s): B34.9 - Viral infection, unspecified (2) CAP (community acquired pneumonia): Status: Acute Category: Medical Code(s): J18.9 - Pneumonia, unspecified organism (3) Severe sepsis with acute organ dysfunction: Status: Acute Category: Medical Code(s): A41.9 - Sepsis, unspecified organism; R65.20 - Severe sepsis without septic shock (4) Elevated troponin: Status: Acute Category: Medical Code(s): R77.8 - Other specified abnormalities of plasma proteins (5) Acute hypoxemic respiratory failure: Status: Acute Category: Medical Code(s): J96.01 - Acute respiratory failure with hypoxia (6) KENNY (acute kidney injury): Status: Acute Category: Medical Code(s): N17.9 - Acute kidney failur
[2022-07-30] VITALS: BP 105/49; PULSE 100; PULSE 99; RESP 17; TEMP 37.1; O2SAT 93
[2022-07-30 04:00] VITALS: BP 116/63; PULSE 110; PULSE 96; RESP 17; TEMP 36.8; O2SAT 94; BMI 24.5
[2022-07-30 05:41] VITALS: PULSE 94; PULSE 98; O2SAT 95
[2022-07-30 07:11] LABS: Basophils % 0.7 % (0.1-2.0); Eosinophils # 0.1 K/mm3 (0.0-0.4); Eosinophils % 2.3 % (0.1-12.0); Hematocrit 29.4 % (37.0-47.0); Lymphocytes # 0.8 K/mm3 (0.7-4.5); Lymphocytes % 13.8 % (10-50); Mean Corpuscular HGB Conc 33.9 g/dL (31.8-35.4); Mean Corpuscular Hemoglobin 30.9 pg (27.0-31.2); Mean Corpuscular Volume 91.3 fl (81-99); Mean Platelet Volume 9.1 fl (7.4-10.4); Monocytes # 0.4 K/mm3 (0.1-1.0); Monocytes % 6.4 % (1.7-9.3); Neutrophils # 4.4 K/mm3 (1.8-7.8); Neutrophils % 76.9 % (37.0-80.0); Platelet Count 240 K/mm3 (142-424); Red Blood Count 3.22 M/mm3 (4.20-5.40); Red Cell Distribution Width 13.3 % (11.5-17.5); White Blood Count 5.8 K/mm3 (4.8-10.8)
[2022-07-30 07:17] LABS: Chloride 109 mmol/L (98-107); Potassium 3.4 mmoL/L (3.5-5.1); Sodium 141 mmol/L (136-145)
[2022-07-30 07:20] LABS: Alanine Aminotransferase 19 U/L (12-78); Alkaline Phosphatase 201 U/L (38-126); Anion Gap 12.4 mEq/L (5-15); Aspartate Amino Transferase 33 U/L (14-36); Bilirubin,Total 0.5 mg/dl (0.2-1.3); Blood Urea Nitrogen 25 mg/dl (7-17); Carbon Dioxide 23 mmol/L (22.0-30.0); Creatinine Clearance Estimated 44 mL/min (50-200); Estimated Glomerular Filt Rate 44 ml/min (>60); GFR (African American) 54 ML/MIN (>60)
[2022-07-30 07:21] LABS: Calcium 8.3 mg/dl (8.4-10.2); Glucose 92 mg/dl (74-100)
--- NOTE | 2022-07-30 07:56 | PC.NURSE ---
Pt c/o of a PERDOMO at beginning of shift. At this time pt also had a low grade fever 100.3. Tylenol administered per OCT. Pt also c/o feeling SOA after getting up to BR this morning. PRN Duoneb administered. Pt states favorable results. Call light within reach.
[2022-07-30 08:00] VITALS: BP 135/63; PULSE 105; PULSE 97; RESP 16; TEMP 36.9; O2SAT 98
--- NOTE | 2022-07-30 09:23 | CA_ITS ---
APPROVED REPORT EXAM: Comprehensive 2D, Doppler, and color-flow Echocardiogram Sampling Expert: Rajwinder Negrete, DANIELA, RVS Ht: 5 ft 3 in Wt: 140lbs BSA: 1.66 BP: 146/75 mmHg Indications: SOA, Pneumonia, Family hx-HD, Ex-smoker Echo Enhancing Agent Comments: Pt supine throughout exam due to coughing epidodes 2D Dimensions Aortic Root 2.71 cm LA Volume 45.00 mL Left Atrium 2.74 cm LA Volume Index 26.50 mL/m2 (M/F) 16-34 LVOT 1.94 cm (M/F) 1.5-2.5 M-Mode Dimensions RVDd 2.34 cm (0.9-2.6) LA Diam 3.15 cm (1.9-4.0) LVDd 4.12 cm (3.5-5.7) Ao Diam 2.98 cm (2.0-3.7) LVDs 2.63 cm (3.5-5.7) IVSd 1.02 cm (0.6-1.1) PWd 0.85 cm (0.6-1.1) EF (Teich) 66.30% EPSs 0.38 cm FS 36.20% EDV (Teich) 75.10 mL TAPSE 1.70 (<1.7) ESV (Teich) 25.30 mL LV Diastology E Decel Time 90.00 (160-240 msec) E/A Ratio 2.96 MED E' 10.80 (< 7 cm/sec) MED A' 15.80 cm/s E'/MED E' Ratio 10.19 (>14) LAT E' 11.10 (<10 cm/sec) LAT A' 14.30 cm/s E/LAT E' Ratio 9.92 (>14) Aortic Valve LVOT Max 111.00 (70-110 cm/s) LVOT VTI 22.65 cm AoV Peak Shahid. 160.00 (50-130 cm/s) AO Peak GR. 10.30 mmHg AO Mean GR. 5.00 (<5 mmHg) AO VTI 30.71 (18-25 cm) AJAY (VTI) 2.18 (2.5-4.5 cm2) Mitral Valve MV A Velocity 37.00 (40-130 cm/s) E/A Ratio 2.96 MV Decel. Time 90.00 (160-240 ms) MV PHT 27.00 ms Pulmonary Valve PV Peak Velocity 78.00 (50-150 cm/s) Tricuspid Valve TR P. Velocity 243.00 cm/s RAP Estimate 10.00 mmHg RVSP 33.60 mmHg Left Ventricle Atrium is normal size, left ventricle is normal size, estimated ejection fraction 55% with no regional wall motion abnormality, diastolic parameters are inconclusive. Right Ventricle Right atrium and right ventricle are normal size and contractility. Aortic Valve Valve is minimally thickened and fibrosed there is no aortic stenosis or aortic insufficiency. Mitral Valve Is grossly normal, there is trace mitral regurgitation. Tricuspid Valve Tricuspid valve grossly normal, there is trace tricuspid regurgitation, calculated right ventricular systolic pressure 33 mmHg. Pulmonic Valve Pulmonic valve is poorly visualized. Great Vessels Aortic root is normal size. Inferior vena cava is normal size with normal inspiratory collapse. Pericardium No significant pericardial effusion noted. Conclusion 1. Normal left ventricular size, estimated ejection fraction 55% with no regional wall motion abnormality, diastolic parameters are inconclusive. 2. Trace mitral and tricuspid regurgitation, calculated right ventricular systolic pressure is 33 mmHg. 3. No significant pericardial effusion noted. 4. Inferior vena cava is normal size with normal inspiratory collapse. Electronically signed by : Vinny Sterling MD 07/30/2022 15:14:12
--- NOTE | 2022-07-30 11:16 | EXP.DC.SUM ---
General Admission date:: 07/28/22 Discharge date: 07/30/22 HPI HPI HPI: Patient is a 72-year-old woman with past medical history of hypertension, COPD, and recent diagnosis of the flu who came to the ER for posterior neck pain that radiated to her left shoulder. Her family is also c/o pt has acted dizzy and confused at times . Pt has had fever and chills, currently 101. She has not had any tylenol since 10am, denies any motrin use. Pt states the pain worsens when she lays on her side. Family also state pt is on a new muscle relaxer and caused her BP to drop to 80's/40's. Patient was seen a few days ago and started on Tamiflu from urgent care. became worse and came to ER. Hospital Course Hospital Course Hospital Course: Patient was admitted in the health care coordinator hours of 07/28 for left-sided community-acquired pneumonia. Patient met sepsis criteria on admission with leukocytosis of 13.3 and tachycardia. Patient additionally had a new supplemental oxygen requirement of 2 to 3 L by nasal cannula. Additionally creatinine was elevated to 3.4 and patient denied any history of previous kidney problems. She had an elevated troponin of 0.11 which trended down to 2.06. Tachycardia continued during admission and she was started on metoprolol 25 mg p.o. daily on 07/29. This was increased to 50 mg p.o. daily on day of discharge. Her white count trended down and was 5.8 on day of discharge, creatinine additionally trended down and was 1.2 on day of discharge. A repeat chest x-ray on 07/29 did show worsening of her left lung consolidation. On 07/30 patient had been on room air for greater than 24 hours. She was overall feeling better and eager to return home, having spent [place] and in the hospital. Given her improvement in lab work I think that this is reasonable. She will be discharged home on a 5-day course of Levaquin 500 mg p.o. daily patient did have an echo on day of discharge given her shortness of breath and an elevated BNP of 5290. Results are pending at time of discharge. Since troponins trended down, patient denied chest pain, and EKG was not overly concerning for acute cardiac ischemia, this seems to be a type II NSTEMI in setting of relative hypoxia, sepsis, and acute kidney injury. Lastly, patient did seem to have oral candidiasis and she was therefore started on nystatin swish and swallow. -Given low blood pressure patient's lisinopril and Flexeril are DC'd. Exam Data for Last 24 hours Vital signs and Labs for Last 24 Hours: Temp Pulse Resp BP Pulse Ox 98.4 F 97 H 16 135/63 98 07/30/22 08:00 07/30/22 08:00 07/30/22 08:00 07/30/22 08:00 07/30/22 08:00 Laboratory Results - last 24 hr 07/30/22 07:00: Sodium 141, Potassium 3.4 L, Chloride 109 H, Carbon Dioxide 23, Anion Gap 12.4, BUN 25 H, Creatinine 1.20 H D, Estimated Creat Clear 44, Estimated GFR 44 L, Est GFR ( Amer) 54 L D, Glucose 92, Calcium 8.3 L, Total Bilirubin 0.5, AST 33 D, ALT 19, Alkaline Phosphatase 201 H, Total Protein 6.0 L, Albumin 3.0 L, Globulin 3.0, Albumin/Globulin Ratio 1.0 L 07/30/22 07:00: WBC 5.8, RBC 3.22 L, Hgb 10.0 L, Hct 29.4 L, MCV 91.3, MCH 30.9, MCHC 33.9, RDW 13.3, Plt Count 240, MPV 9.1, Neut % (Auto) 76.9, Lymph % (Auto) 13.8, [place] % (Auto) 6.4, Eos % (Auto) 2.3, Baso % (Auto) 0.7, Neut # (Auto) 4.4, Lymph # (Auto) 0.8, [place] # (Auto) 0.4, Eos # (Auto) 0.1, Baso # (Auto) 0.0 I & O for Last 24 hours: Intake & Output 07/27/22 07/28/22 07/29/22 07/30/22 23:59 23:59 23:59 23:59 Intake Total 2410 / 2410 840 / 840 1521 / 1521 Output Total 300 / 300 0 / 0 1000 / 1000 Balance 2110 / 2110 840 / 840 521 / 521 Weight 60.781 kg 63.14 kg 63.163 kg 63.56 kg Microbiology Reports for the Last 24 Hours: Microbiology 07/27/22 22:21 Urine,Clean Catch Urine Culture - Final Multiple organisms, suggests contamination. 07/27/22 22:35 Blood Blood Culture - Preliminary
--- NOTE | 2022-07-30 12:51 | HMH.PHAINT1 ---
Pharmacy Intervention Comments: DISCHARGE MEDICATION COUNSELING PROVIDED. DISCUSSED THE FOLLOWING CHANGES: -STOP THE FOLLOWING: CYCLOBENZAPRINE, TAMIFLU, MELOXICAM, LISINOPRIL -START THE FOLLOWING: -MUCINEX DM (COUGH MEDICINE, EVERY 4 HOURS NEEDED, IF NOT NEEDED YOU DONT HAVE TO TAKE) -LEVOFLOXACIN (ANTIBIOTIC, DAILY, N/V/D POSSIBLE, TAKE WITH FOOD) -METOPROLOL (BP/HR, DAILY, DIZZINESS, LIGHTHEADEDNESS, HEADACHE, SLOWED HR POSSIBLE) -NYSTATIN (FOR THRUSH, FOUR TIMES DAILY, SWISH AND SWALLOW) PATIENT VERBALIZED NO QUESTIONS AT THIS TIME.
--- NOTE | 2022-07-31 14:15 | CARE MANAGER ---
Contacted patient's and he states patient is doing better. They did garbage pick up worker all her prescriptions and she has a follow up appointment with PCP next week. Denies questions or concerns. ADITI Lui
== END 2022-07-30 13:04 | disposition home or self-care (01) | DRG 871 ==
LOC: ER 23:33 → 2ND 07-28 00:26
PROVIDERS: Nurse Practitioner Family; Admitting Provider Emergency Medicine; Emergency Provider Emergency Medicine; PCP Internal Medicine; Visit Provider Emergency Medicine
DX: A41.9 Sepsis, unspecified organism (principal); J18.9 Pneumonia, unspecified organism; J96.01 Acute respiratory failure with hypoxia; N17.9 Acute kidney failure, unspecified; B37.0 Candidal stomatitis; R65.20 Severe sepsis without septic shock; I10 Essential (primary) hypertension; E78.5 Hyperlipidemia, unspecified
CPT/HCPCS: 36415; 71046; 71250; 72125; 72128; 80053; 81001; 83605; 83880; 84145; 84484; 85007; 85025; 85651; 86140; 87040; 87070; 87086; 87205; 87581; 87632; 87798; 87804; 93005; 93306; 94640; 94761; 99212; 99285; C9803; G0463; J0456; J0696; U0003; U0005

== ENCOUNTER 2023-05-09 08:00 | Outpatient (RCR) | payer MEDICARE, SELFPAY | END 2023-05-09 08:05 | disposition home or self-care (01) | LOC: PT 08:00 | PROVIDERS: PCP Internal Medicine Cardiovascular Disease; Visit Provider Internal Medicine | DX: M54.50 Low back pain, unspecified (principal) | CPT/HCPCS: 97010; 97014; 97110; 97140; 97163; 97164; 97530; G0283 ==